=== PATIENT | male | born 1985 | race Caucasian/White ===

== ENCOUNTER 2019-02-25 10:08 | Emergency (ER) | payer MEDICAID, OTHER ==
[~2019-02-25] VITALS: Ht 182.9 cm; Wt 62.3 kg
[2019-02-25 10:28] VITALS: BP 95/65
[2019-02-25] MEDS ORDERED: LORazepam 2 mg/ml vial IM ONE (11:00)
[2019-02-25] MEDS ORDERED: HYDR-4353 PO (11:13)
[2019-02-25] MEDS ORDERED: AMOX-100 PO (11:13)
== END 2019-02-25 12:03 | disposition home or self-care (01) ==
LOC: ER 10:08
DX: K08.89 Other specified disorders of teeth and supporting structures (principal); G89.29 Other chronic pain; F31.9 Bipolar disorder, unspecified; F20.9 Schizophrenia, unspecified; Z59.0 Homelessness; Z88.8 Allergy status to other drugs, medicaments and biological substances; Z88.5 Allergy status to narcotic agent
CPT/HCPCS: 96372; 99283; J2060